=== PATIENT | female | born 1975 | race Caucasian/White ===

== ENCOUNTER 2020-11-04 11:13 | Day surgery (SDC) | payer BC ==
[~2020-11-04 11:13] MED LIST: Bupivacaine 0.5% 30 ML SDV ONE; Bupivacaine 25%/EPINEPHrine/PF 0 ML ONE; Clindamycin Phosphate in D5W 900 MG in Premix Bag 1 BAG IV SCH; Dexamethasone 4 MG/ML 5 ML MDV ONE; Lactated Ringers 1,000 ML IV SCH
[2020-11-04] MEDS ORDERED: Ondansetron 4 MG/2 ML SDV ONE (11:48)
[2020-11-04] MEDS ORDERED: fentaNYL 250 MCG/5 ML SDV ONE (11:48)
[2020-11-04] MEDS ORDERED: Lidocaine 2% 5 ML SDV ONE (11:48)
[2020-11-04] MEDS ORDERED: Midazolam 1 MG/ML 2 ML SDV ONE (11:48)
[2020-11-04] MEDS ORDERED: Propofol 200 MG/20 ML SDV ONE (11:48)
--- NOTE | 2020-11-04 11:59 | PCM.PREANE ---
Preanesthetic Assessment - Anesthesia/Transfusion/Family Hx Anesthesia History: Prior Anesthesia Without Reaction Family History of Anesthesia Reaction: No Transfusion History: No Prior Transfusion(s) - Review of Systems General: No Symptoms Pulmonary: No Symptoms Cardiovascular: No Symptoms Gastrointestinal: No Symptoms Neurological: No Symptoms Other: Reports: None - Physical Assessment NPO Status Date: 11/03/20 Height: 5 ft 2 in Weight: 88.904 kg ASA Class: 2 Mental Status: Alert & Oriented x3 Airway Class: Mallampati = 2 Dentition: Reports: Normal Dentition ROM/Head Extension: Full Lungs: Clear to Auscultation, Normal Respiratory Effort Cardiovascular: Regular Rate, Regular Rhythm - Lab Values: Laboratory Last Values SARS-CoV-2 RNA (KISHA) NEGATIVE (NEGATIVE) 11/04/20 10:05 - Allergies Allergies/Adverse Reactions: Allergies Allergy/AdvReac Type Severity Reaction Status Date / Time Penicillins Allergy Hives Verified 11/04/20 11:55 - Blood Blood Available: No - Anesthesia Plan Pre-Op Medication Ordered: None - Acknowledgements Anesthesia Type Planned: General Anesthesia Pt an Appropriate Candidate for the Planned Anesthesia: Yes Alternatives and Risks of Anesthesia Discussed w Pt/Guardian: Yes Pt/Guardian Understands and Agrees with Anesthesia Plan: Yes Additional Comments: PMH: s/p hyst, migraines, thyroid replacement Plan: ga/lma PreAnesthesia Questionnaire HEENT History: Reports: None Cardiovascular History: Reports: None Respiratory History: Reports: None Gastrointestinal History: Reports: None Genitourinary History: Reports: None Musculoskeletal History: Reports: Fracture, Other (See Below) Other Musculoskeletal History: intermittent back pain, hx of fx elbow Neurological History: Reports: Migraines Psychiatric History: Reports: Anxiety Endocrine/Metabolic History: Reports: Hypothyroidism, Obesity/BMI 30+ Hematologic History: Reports: None Immunologic History: Reports: None Oncologic (Cancer) History: Reports: None Dermatologic History: Reports: None - Past Surgical History Head Surgeries/Procedures: Reports: None HEENT Surgical History: Reports: None Cardiovascular Surgical History: Reports: None Respiratory Surgical History: Reports: None GI Surgical History: Reports: Appendectomy Female Surgical History: Reports: Hysterectomy Endocrine Surgical History: Reports: None Neurological Surgical History: Reports: None Musculoskeletal Surgical History: Reports: Other (See Below) Other Musculoskeletal Surgeries/Procedures:: hx sx for fx left elbow Oncologic Surgical History: Reports: None Dermatological Surgical History: Reports: None - SUBSTANCE USE Tobacco Use Status *Q: Never Tobacco User - HOME MEDS Home Medications: Home Meds Acetaminophen [Tylenol Extra Strength] 12 tab PO ASDIRECTED PRN 10/28/20 [History] Diclofenac Sodium [Voltaren 1% Gel] 1 applic TOP ASDIRECTED PRN 10/28/20 [History] FLUoxetine HCl [Fluoxetine HCl] 20 mg PO DAILY 10/28/20 [History] Levothyroxine Sodium [Levothyroxine] 50 mcg PO DAILY 10/28/20 [History] Oxytocin Nasal [place] 1 spray SAV ASDIRECTED PRN 10/28/20 [History] Propranolol HCl [Propranolol] 60 mg PO DAILY 10/28/20 [History] SUMAtriptan succinate [Imitrex] 1 tab PO ASDIRECTED PRN 10/28/20 [History] methocarbamoL [Methocarbamol] 1 - 2 tab PO ASDIRECTED PRN 10/28/20 [History] tiZANidine HCl [Tizanidine HCl] 4 mg PO BEDTIME 10/28/20 [History] - CURRENT (IN HOUSE) MEDS Current Meds: Current Medications Lactated Ringer's (Ringers, Lactated) 1,000 mls @ 100 mls/hr IV ASDIRECTED [facility] Last Admin: 11/04/20 11:35 Dose: 100 mls/hr Documented by: Clindamycin Phosphate 900 mg/ (Premix) 50 mls @ 100 mls/hr IV ONCALL [facility] Last Admin: 11/04/20 11:45 Dose: 100 mls/hr Documented by: Discontinued Medications Bupivacaine HCl (Marcaine 0.5%) Confirm Administered Dose 30 ml .ROUTE .STK-MED ONE Stop: 11/04/20 07:28 Dexamethasone (Dexamethasone) Confirm Administered Dose 40 mg .ROUTE .STK-MED ONE Stop: 11/04/20 07:30 Fentanyl (Sublimaze) Confirm Administered Dose 250 mcg .ROUTE .STK-MED ONE Stop: 11/04/20 11:49 Bupivacaine HCl/Epinephrine Bitart (Sensorc Mpf 0.25%-Epi [id number]) Confirm Administered Dose 30 mls @ as directed .ROUTE .STK-MED ONE Stop: 11/04/20 07:29 Acetaminophen (Ofirmev) Confirm Administered Dose 100 mls @ as directed .ROUTE .STK-MED ONE Stop: 11/04/20 09:34 Lidocaine (Xylocaine-Mpf 2%) Confirm Administered Dose 5 ml .ROUTE .STK-MED ONE Stop: 11/04/20 11:49 Midazolam HCl (Versed 1 Mg/Ml) Confirm Administered Dose 2 mg .ROUTE .STK-MED ON E Stop: 11/04/20 11:49 Ondansetron HCl (Zofran) Confirm Administered Dose 4 mg .ROUTE .STK-MED ONE Stop: 11/04/20 11:49 Propofol (Diprivan 20 Ml) Confirm Administered Dose 200 mg .ROUTE .STK-MED ONE Stop: 11/04/20 11:49
[2020-11-04] MEDS ORDERED: Glycopyrrolate 0.2 MG/ML SDV ONE ×2 (12:26→12:31)
[2020-11-04] MEDS ORDERED: ePHEDrine 50 MG/ML SDV ONE (12:31)
[2020-11-04] MEDS ORDERED: Naloxone 0.4 MG/ML Syringe IVPUSH PRN (13:11)
[2020-11-04] MEDS ORDERED: EPINEPHrine 1:10,000 1 MG/10 ML Syringe IVPUSH PRN (13:11)
[2020-11-04] MEDS ORDERED: Albuterol 0.083% 2.5 MG/3 ML Neb Soln NEB PRN (13:11)
[2020-11-04] MEDS ORDERED: fentaNYL 100 MCG/2 ML SDV IVPUSH PRN (13:11)
[2020-11-04] MEDS ORDERED: Atropine 0.1 MG/ML 10 ML Syringe IVPUSH PRN ×2 (13:11)
[2020-11-04] MEDS ORDERED: 50% Dextrose in Water 50 ML Syringe IVPUSH PRN (13:11)
--- NOTE | 2020-11-04 13:20 | PCM.OPNOTE ---
- General Post-Op/Procedure Note Date of Surgery/Procedure: 11/04/20 Operative Procedure(s): bilateral carpal tunnel release Pre Op Diagnosis: bilateral carpal tunnel syndrome Post-Op Diagnosis: Same Anesthesia Technique: Local, Moderate Sedation Primary Surgeon: Arik Guzman EBL in mLs: 5 Complications: None Condition: Good
[2020-11-04] MEDS ORDERED: Ketorolac 30 MG/ML SDV IVPUSH ONE (13:56)
[2020-11-04] MEDS ORDERED: Acetaminophen 1,000 MG in Premix Bag 1 BAG IV ONE (13:56)
--- NOTE | 2020-11-04 14:49 | PCM48HPAN ---
Post Anesthesia Note - EVALUATION WITHIN 48HRS OF ANESTHETIC Vital Signs in Normal Range: Yes Patient Participated in Evaluation: Yes Respiratory Function Stable: Yes Airway Patent: Yes Cardiovascular Function Stable: Yes Hydration Status Stable: Yes Pain Control Satisfactory: Yes Nausea and Vomiting Control Satisfactory: Yes Mental Status Recovered: Yes Vital Signs: Last Vital Signs Temp 96.8 F L 11/04/20 13:20 Pulse 75 11/04/20 14:10 Resp 10 L 11/04/20 14:10 BP 117/56 L 11/04/20 14:10 Pulse Ox 100 11/04/20 14:10
--- NOTE | 2020-11-04 14:49 | PCM.POSTAN ---
POST ANESTHESIA ASSESSMENT - MENTAL STATUS Mental Status: Alert, Oriented - VITAL SIGNS Vital Signs: Last Vital Signs Temp 96.8 F L 11/04/20 13:20 Pulse 75 11/04/20 14:10 Resp 10 L 11/04/20 14:10 BP 117/56 L 11/04/20 14:10 Pulse Ox 100 11/04/20 14:10 - RESPIRATORY Respiratory Status: Respiratory Rate WNL, Airway Patent, O2 Saturation Stable - CARDIOVASCULAR CV Status: Pulse Rate WNL, Blood Pressure Stable - GASTROINTESTINAL GI Status: No Symptoms - POST OP HYDRATION Hydration Status: Adequate & Stable
--- NOTE | 2020-11-04 15:48 | OR ---
SURGEON: Arik Guzman DATE OF PROCEDURE: 11/04/2020 PREOPERATIVE DIAGNOSIS: Bilateral carpal tunnel syndrome. POSTOPERATIVE DIAGNOSIS: Bilateral carpal tunnel syndrome. PROCEDURE: Bilateral carpal tunnel release. PRIMARY SURGEON: Arik Guzman DO ANESTHESIA: Conscious sedation. FLUID: Lactated Ringer's solution. ESTIMATED BLOOD LOSS: Less than 5 mL. COMPLICATIONS: None. SPECIMEN: None. DISCHARGE DISPOSITION: Stable to PACU. HISTORY AND INDICATIONS FOR THE PROCEDURE: The patient was seen preoperatively in the clinic. She had EMG confirming the above-mentioned diagnosis. Risks and goals of the procedure were explained to the patient. Informed consent was obtained. DETAILS OF PROCEDURE: The patient was seen preoperatively by myself and the Anesthesia staff preoperatively where the operative site was marked. She was brought to the operative suite by Anesthesia staff where conscious sedation was administered. Bilateral upper extremities then prepped and draped in a sterile manner. Time- out was called identifying the correct patient, the correct procedure, the correct site, and that antibiotics had been given within appropriate period of time. Also, there have been forearm tourniquets placed bilaterally, which were well padded. We started with the left carpal tunnel first. The left forearm was then exsanguinated, tourniquet was raised to 200 mmHg and taken down at 9 minutes. An incision was made just proximal to a line extending from the first metacarpal and then in line with the radial border of the fourth digit extended proximally about 2 cm. Bleeding was controlled with bipolar electrocautery. I used self-retaining retractors and then used the 15 blade to go down to the area of the transverse carpal ligament. I then repositioned my retractors. I then divided the transverse carpal ligament with a 15 blade. I then undermined proximally and distally above and below the deep palmar fascia, proximally and distally the transverse carpal ligament, and then using Ragnell under direct visualization released the median nerve by cutting the deep palmar fascia with Metzenbaum. After this had been accomplished, we then irrigated with saline and then placed some dexamethasone. I then closed with horizontal mattress 3-0 nylon sutures. The tourniquet was again let down at 9 minutes. The same procedure was done on the right upper extremity with the tourniquet time of 9 minutes. [id number] / MODL /[id number]
== END 2020-11-04 15:00 | disposition home or self-care (01) ==
LOC: MW.SDS 11:13
PROVIDERS: ATTEND Orthopaedic Surgery
DX: G56.03 Carpal tunnel syndrome, bilateral upper limbs (principal); E03.9 Hypothyroidism, unspecified; G43.909 Migraine, unspecified, not intractable, without status migrainosus; E66.9 Obesity, unspecified; Z01.812 Encounter for preprocedural laboratory examination; Z20.828 Contact with and (suspected) exposure to other viral communicable diseases; Z88.1 Allergy status to other antibiotic agents; Z79.899 Other long term (current) drug therapy; Z79.890 Hormone replacement therapy; Z98.890 Other specified postprocedural states; Z88.0 Allergy status to penicillin; Z68.35 Body mass index [BMI] 35.0-35.9, adult
CPT/HCPCS: 64721; 87635; J0131; J1100; J1885; J2001; J2250; J2405; J2704; J3010; J3490; J7120; 01810; U0002